=== PATIENT | male | born 2000 | race Caucasian/White ===

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

== ENCOUNTER 2022-02-14 04:43 | Emergency (ER) | payer OTHER ==
[2022-02-14] MEDS ORDERED: IBUPROFEN600 MG PO (05:20)
== END 2022-02-14 05:43 | disposition home or self-care (01) ==
LOC: ER1 04:43
DX: S42.022A Displaced fracture of shaft of left clavicle, initial encounter for closed fracture (principal); S80.812A Abrasion, left lower leg, initial encounter; F17.290 Nicotine dependence, other tobacco product, uncomplicated; V29.9XXA Motorcycle rider (driver) (passenger) injured in unspecified traffic accident, initial encounter
CPT/HCPCS: 73030; 99283

== ENCOUNTER → 2022-02-23 | Day surgery (SDC) | payer OTHER ==
[~2022-02-23] MED LIST: HYDROCODON-ACE1 EAC2 PO; HYDROCODON-ACE1 EAC4 PO; IBUPROFEN600 MG PO
[2022-02-23 08:06] LABS: HEMOGLOBIN 15.4 gm/dl (14.0-17.5); RED BLOOD COUNT 5.04 M/UL (4.20-5.50); WHITE BLOOD COUNT 8.5 K/UL (4.5-11.0)
[2022-02-23 08:31] LABS: BUN/CREATININE RATIO 18 (0-10)
== END | disposition home or self-care (01) ==
LOC: OR 07:18
PROVIDERS: Orthopaedic Surgery
DX: S42.022A Displaced fracture of shaft of left clavicle, initial encounter for closed fracture (principal); W03.XXXA Other fall on same level due to collision with another person, initial encounter; Y04.2XXA Assault by strike against or bumped into by another person, initial encounter; G89.18 Other acute postprocedural pain; F17.210 Nicotine dependence, cigarettes, uncomplicated
CPT/HCPCS: 73000; 76000; 80048; 85027; C1713; J0690; J1100; J1170; J2001; J2250; J2405; J2704; J2795; J3010